=== PATIENT | female | born 1955 | race Caucasian/White ===

== ENCOUNTER 2024-11-02 01:15 | Inpatient (IN) ==
[2024-11-02] MEDS ORDERED: IOPAMIDOL 100 ML BOTTLE IV ONE (01:16)
[2024-11-02 01:38] LABS: Basophils # (Auto) 0.04 K/mcL (0.00-0.30); Basophils % (Auto) 0.3 % (0.0-2.0); Eosinophils # (Auto) 0 K/mcL (0.00-0.70); Eosinophils % (Auto) 0 % (0.0-7.0); Hematocrit 40.2 % (34.1-44.9); Lymphocytes # (Auto) 1.27 K/mcL (1.50-4.80); Lymphocytes % (Auto) 8.7 % (15.5-49.0); Mean Corpuscular HGB Conc 32.3 g/dL (31.0-36.0); Mean Platelet Volume 10.5 fL (8.8-12.5); Monocytes # (Auto) 1.42 K/mcL (0.10-0.90); Monocytes % (Auto) 9.7 % (1.0-12.0); Platelet Count 279 K/mcL (140-440); RBC 4.42 M/mcL (3.59-5.38); Red Cell Distribution Width 13.3 % (11.5-14.5); WBC 14.6 K/mcL (4.5-11.0)
[2024-11-02 01:59] LABS: ALT/SGPT 8 U/L (<40); AST/SGOT 17 U/L (<32); Albumin/Globulin Ratio 1.2 (1.0-2.3); Alkaline Phosphatase 59 U/L (39-117); Bilirubin,Total 0.5 mg/dL (0.1-1.0); Blood Urea Nitrogen 15 mg/dL (8-23); Calcium 8.9 mg/dL (8.6-10.4); Carbon Dioxide 23 mmol/L (22-30); Chloride 102 mmol/L (96-108); Globulin 3.3 gm/dL (2.2-3.7); Glomerular Filtration Rate 57; Glucose 127 mg/dL (70-105); Sodium 139 mmol/L (133-145)
[2024-11-02] MEDS: ASPIRIN 81 MG TAB.CHEW CHEWED ONE (02:00)
[2024-11-02 02:19] LABS: Partial Thromboplastin Time 37.1 sec (20.0-37.0)
[2024-11-02 02:20] LABS: INR 1.1 (0.9-1.1); Prothrombin Time 15.2 sec (11.9-14.5)
[2024-11-02 03:34] LABS: Appearance,Urine Clear (Clear); Bacteria,Urine MANY /hpf (0); Bilirubin,Urine Negative (Negative); Color,Urine Yellow; Glucose,Urine (UA) Negative (Negative); Ketones,Urine Negative (Negative); Leukocyte Esterase,Urine Small /uL (Negative); Mucus,Urine MANY /hpf; Nitrate,Urine Positive (Negative); PH,Urine 5.5 (5.0-9.0); Protein,Urine Negative (Negative); Urine Blood Trace-intact ery/mcL (Negative); Urine RBC 5 /hpf (0-3); Urine Squamous Epithelial Cell 0 /hpf (0-4); Urine WBC > 182 /hpf (0-4); Urobilinogen,Urine Normal
[2024-11-02] MEDS: 0.9 % SODIUM CHLORIDE 1,000 ML IV ONE (03:41)
[2024-11-02] MEDS: ACETAMINOPHEN 1,000 MG/100 ML BAG IV ONE (04:14)
[2024-11-02] MEDS: LEVOFLOXACIN 750 MG/150 ML BAG IV ONE (04:46)
[2024-11-02] MEDS ORDERED: VANCOMYCIN PER PHARMACY IV SCH (07:37)
[2024-11-02] MEDS ORDERED: DEXTROSE 31 GM ORAL.SUSP PO PRN (08:02)
[2024-11-02] MEDS ORDERED: DEXTROSE 50% 50 ML VIAL IV PRN (08:02)
[2024-11-02] MEDS ORDERED: ONDANSETRON 4 MG/2 ML VIAL IV PRN (08:19)
[2024-11-02] MEDS ORDERED: IPRATROPIUM/ALBUTEROL 3 ML AMPUL.NEB NEB PRN (08:19)
[2024-11-02] MEDS ORDERED: POLYETHYLENE GLYCOL 3350 17 GM PACKET PO PRN (08:19)
[2024-11-02] MEDS ORDERED: SENNOSIDES 1 TABLET PO PRN (08:19)
[2024-11-02] MEDS: 0.9 % SODIUM CHLORIDE 500 ML IV ONE (08:24)
[2024-11-02] MEDS: LACTATED RINGERS 1,000 ML IV ONE (08:47)
[2024-11-02] MEDS: LACTATED RINGERS 1,000 ML IV SCH (08:49)
[2024-11-02] MEDS: ACETAMINOPHEN 1,000 MG/100 ML BAG IV PRN (09:59)
[2024-11-02] MEDS: VANCOMYCIN 2,000 MG in 0.9 % SODIUM CHLORIDE 500 ML IV SCH (11:23)
[2024-11-02] MEDS: HEPARIN 5,000 UNIT/ML VIAL SQ SCH (11:23)
[2024-11-02] MEDS: INSULIN LISPRO 1 UNIT/0.01 ML UNIT SQ SCH (11:24)
[2024-11-02] MEDS: HYDROCODONE/APAP 7.5/325MG TABLET PO PRN (14:47)
[2024-11-02] MEDS: METHOCARBAMOL 750 MG TABLET PO SCH ×2 (14:48→20:27)
[2024-11-02] MEDS: 0.9 % SODIUM CHLORIDE 10 ML SYRINGE IV SCH (14:48)
[2024-11-02] MEDS: MELATONIN 3 MG TABLET PO SCH (20:27)
[2024-11-02] MEDS: GABAPENTIN 400 MG CAPSULE PO SCH (20:27)
[2024-11-02] MEDS: AMITRIPTYLINE 25 MG TABLET PO SCH (20:27)
[2024-11-02] MEDS: buPROPion 150 MG TAB.XL.24H PO SCH (20:27)
[2024-11-03 06:01] LABS: Basophils # (Auto) 0.03 K/mcL (0.00-0.30); Basophils % (Auto) 0.3 % (0.0-2.0); Eosinophils # (Auto) 0.08 K/mcL (0.00-0.70); Eosinophils % (Auto) 0.9 % (0.0-7.0); Hematocrit 36.7 % (34.1-44.9); Hemoglobin 11.7 g/dL (11.2-15.7); Lymphocytes # (Auto) 1.35 K/mcL (1.50-4.80); Lymphocytes % (Auto) 15.6 % (15.5-49.0); Mean Cell Volume 92.7 fL (80.0-100.0); Mean Corpuscular HGB Conc 31.9 g/dL (31.0-36.0); Mean Platelet Volume 10.7 fL (8.8-12.5); Monocytes % (Auto) 12.7 % (1.0-12.0); Neutrophils % (Auto) 70.4 % (38.0-78.0); Platelet Count 201 K/mcL (140-440); RBC 3.96 M/mcL (3.59-5.38); Red Cell Distribution Width 13.6 % (11.5-14.5); WBC 8.6 K/mcL (4.5-11.0)
[2024-11-03 06:12] LABS: ALT/SGPT 11 U/L (<40); AST/SGOT 21 U/L (<32); Albumin 3.4 gm/dL (3.2-5.2); Albumin/Globulin Ratio 1.1 (1.0-2.3); Alkaline Phosphatase 54 U/L (39-117); Bilirubin,Direct < 0.2 mg/dL (0-0.3); Bilirubin,Total 0.2 mg/dL (0.1-1.0); Blood Urea Nitrogen 13 mg/dL (8-23); Calcium 8.9 mg/dL (8.6-10.4); Carbon Dioxide 27 mmol/L (22-30); Chloride 104 mmol/L (96-108); Globulin 3.1 gm/dL (2.2-3.7); Glomerular Filtration Rate 75; Glucose 90 mg/dL (70-105); Lactate Dehydrogenase 150 U/L (135-225); Potassium 4.1 mmol/L (3.3-5.1); Sodium 140 mmol/L (133-145); Triglycerides 86 mg/dL (<150); Uric Acid 5.3 mg/dL (2.5-8.0)
[2024-11-03] MEDS: PANTOPRAZOLE 40 MG TABLET PO SCH (07:31)
[2024-11-03] MEDS: PARoxetine 20 MG TABLET PO SCH (09:06)
[2024-11-03] MEDS: FUROSEMIDE 80 MG TABLET PO SCH (09:07)
[2024-11-03] MEDS: LEVOFLOXACIN 750 MG/150 ML BAG IV SCH (09:07)
[2024-11-04 05:48] LABS: Basophils # (Auto) 0.03 K/mcL (0.00-0.30); Basophils % (Auto) 0.4 % (0.0-2.0); Eosinophils # (Auto) 0.25 K/mcL (0.00-0.70); Eosinophils % (Auto) 3.7 % (0.0-7.0); Hematocrit 33.3 % (34.1-44.9); Hemoglobin 10.7 g/dL (11.2-15.7); Lymphocytes # (Auto) 2.11 K/mcL (1.50-4.80); Lymphocytes % (Auto) 31.3 % (15.5-49.0); Mean Cell Volume 91.7 fL (80.0-100.0); Mean Corpuscular HGB Conc 32.1 g/dL (31.0-36.0); Mean Platelet Volume 10.1 fL (8.8-12.5); Monocytes # (Auto) 0.97 K/mcL (0.10-0.90); Monocytes % (Auto) 14.4 % (1.0-12.0); Neutrophils % (Auto) 50.1 % (38.0-78.0); Platelet Count 211 K/mcL (140-440); RBC 3.63 M/mcL (3.59-5.38); Red Cell Distribution Width 13.5 % (11.5-14.5); WBC 6.7 K/mcL (4.5-11.0)
[2024-11-04 06:15] LABS: ALT/SGPT 8 U/L (<40); AST/SGOT 17 U/L (<32); Albumin 3.2 gm/dL (3.2-5.2); Albumin/Globulin Ratio 1.1 (1.0-2.3); Alkaline Phosphatase 47 U/L (39-117); Bilirubin,Direct < 0.2 mg/dL (0-0.3); Bilirubin,Total < 0.2 mg/dL (0.1-1.0); Blood Urea Nitrogen 19 mg/dL (8-23); Calcium 8.8 mg/dL (8.6-10.4); Carbon Dioxide 27 mmol/L (22-30); Chloride 105 mmol/L (96-108); Globulin 2.9 gm/dL (2.2-3.7); Glomerular Filtration Rate 75; Glucose 97 mg/dL (70-105); Lactate Dehydrogenase 147 U/L (135-225); Phosphorous 4.3 mg/dL (2.5-4.5); Potassium 3.7 mmol/L (3.3-5.1); Sodium 141 mmol/L (133-145); Triglycerides 99 mg/dL (<150); Uric Acid 5.9 mg/dL (2.5-8.0)
[2024-11-04] MEDS ORDERED: ACETAMINOPHEN 325 MG TABLET PO PRN (07:39)
[2024-11-05] MEDS ORDERED: LEVOFLOXACIN 750 MG/150 ML BAG IV SCH (09:00)
[2024-11-05] MEDS: LEVOFLOXACIN 750 MG TABLET PO SCH (09:14)
== END 2024-11-05 11:45 | DRG 689 ==
LOC: ED 01:15 → ICU 08:12 → MEDSUR 11-03 15:38
PROVIDERS: ADMIT Student in an Organized Health Care Education/Training Program; ATTEND Internal Medicine